=== PATIENT | male | born 1960 | race Caucasian/White ===

== ENCOUNTER 2016-05-16 09:37 | Emergency (ER) | payer MEDICAID ==
[~2016-05-16] VITALS: Ht 152.4 cm; Wt 59.9 kg
[~2016-05-16 09:37] MED LIST: CYCL5TAB PO; SIMV-8
[2016-05-16 10:54] LABS: Albumin 4.2 g/dL (3.4-5.0); BUN/Creatinine Ratio 16.7; Bilirubin, Total 0.6 mg/dL (0.2-1.0); Calcium 8.9 mg/dL (8.5-10.1); Potassium 4.1 mmol/L (3.5-5.1); Total Protein 7.7 g/dL (6.4-8.2)
[2016-05-16 11:04] LABS: Basophils # (auto) 0 uL; Basophils % (auto) 0.4 % (0.0-2.0); Eosinophils # (auto) 0 uL; Eosinophils % (auto) 0.9 % (0.0-7.0); Hematocrit 45.1 % (41.0-53.0); Hemoglobin 15.3 g/dL (13.5-17.5); Lymphocytes # (auto) 1.6 uL; Lymphocytes % (auto) 30.8 % (10.0-50.0); Mean Corpuscular Hemoglobin 29.4 pg (28.0-32.0); Mean Corpuscular Hgb Conc. 33.9 g/dL (32.0-36.0); Mean Corpuscular Volume 86.6 fL (80.0-100.0); Mean Platelet Volume 8.6 fL (7.4-10.4); Monocytes # (auto) 0.4 uL; Monocytes % (auto) 7.2 % (0.0-12.0); Neutrophils # (auto) 3.1 uL; Neutrophils % (auto) 60.7 % (37.0-80.0); Platelet Count (auto) 207 10^3/uL (140-450); Red Cell Distribution Width 12.8 % (11.6-16.0)
[2016-05-16 13:08] VITALS: BP 139/80
== END 2016-05-16 15:19 | disposition home or self-care (01) ==
LOC: ER 09:47
DX: G89.29 Other chronic pain (principal); M54.5 Low back pain
CPT/HCPCS: 36415; 73502; 80053; 85025; 93005; 93926

== ENCOUNTER 2021-06-24 03:53 | Emergency (ER) | payer MEDICAID, OTHER ==
[~2021-06-24] VITALS: Ht 175.3 cm; Wt 81.6 kg
[~2021-06-24 03:53] MED LIST changes: +CYCL-837 PO; -CYCL5TAB PO
[2021-06-24 05:01] LABS: Albumin 3.6 g/dL (3.4-5.0); Calcium 8.5 mg/dL (8.5-10.1); Potassium 4.3 mmol/L (3.5-5.1)
[2021-06-24 05:02] LABS: BUN/Creatinine Ratio 9.8
[2021-06-24 05:05] LABS: Bilirubin, Total 0.8 mg/dL (0.2-1.0); Total Protein 7.1 g/dL (6.4-8.2)
[2021-06-24] MEDS ORDERED: AMOXICILLIN/CLAVUL 875 MG TAB PO ONE (05:45)
[2021-06-24] MEDS ORDERED: DexAMETHasone SOD PHOS 10MG/1ML VIAL INJ IM ONE (05:45)
[2021-06-24 06:03] LABS: Basophils # (auto) 0 10 ^3/uL (0-0.2); Basophils % (auto) 0.3 % (0.0-2.0); Eosinophils # (auto) 0 10 ^3/uL (0-0.8); Hematocrit 39.9 % (41.0-53.0); Hemoglobin 14.3 g/dL (13.5-17.5); Lymphocytes # (auto) 0.8 10 ^3/uL (0.4-5.4); Lymphocytes % (auto) 13.2 % (10.0-50.0); Mean Corpuscular Hemoglobin 29.8 pg (28.0-32.0); Mean Corpuscular Hgb Conc. 35.8 g/dL (32.0-36.0); Mean Corpuscular Volume 83.3 fL (80.0-100.0); Monocytes # (auto) 0.7 10 ^3/uL (0-1.3); Monocytes % (auto) 10.6 % (0.0-12.0); Neutrophils # (auto) 4.8 10 ^3/uL (1.6-8.6); Neutrophils % (auto) 75.9 % (37.0-80.0); Red Blood Cells 4.79 10^6/uL (4.5-5.90); Red Cell Distribution Width 13.5 % (11.8-14.3); White Blood Cell 6.4 10^3/uL (4.4-10.8)
[2021-06-24 06:23] VITALS: BP 142/82
== END 2021-06-24 06:40 | disposition home or self-care (01) ==
LOC: EDBD 03:53 → ER 03:53
DX: J02.9 Acute pharyngitis, unspecified (principal); R51.9 Headache, unspecified; Z79.899 Other long term (current) drug therapy
CPT/HCPCS: 36415; 70450; 71045; 80053; 84484; 85025; 93005; 96372; 99285; J1100

== ENCOUNTER 2023-06-15 11:53 | Emergency (ER) | payer MEDICAID ==
[~2023-06-15] VITALS: Ht 175.3 cm; Wt 65.7 kg
[~2023-06-15 11:53] MED LIST changes: -SIMV-8; +SIMV20TA20
[2023-06-15] MEDS: KETOROLAC TROMETH 60MG/2ML VIAL IM ONE (13:01)
[2023-06-15] MEDS ORDERED: IBUP-1456 PO (13:21)
[2023-06-15] MEDS ORDERED: BACL10TA PO (13:21)
[2023-06-15 13:27] VITALS: BP 118/72; PULSE 65; RESP 19; TEMP 97.6; O2SAT 97
== END 2023-06-15 13:29 | disposition home or self-care (01) ==
LOC: ER 11:53
DX: S39.012A Strain of muscle, fascia and tendon of lower back, initial encounter (principal); G89.29 Other chronic pain; Z79.1 Long term (current) use of non-steroidal anti-inflammatories (NSAID); Z79.899 Other long term (current) drug therapy; X50.1XXA Overexertion from prolonged static or awkward postures, initial encounter; Y93.89 Activity, other specified; Y92.89 Other specified places as the place of occurrence of the external cause; Y99.8 Other external cause status
CPT/HCPCS: 72100; 96372; 99283; J1885

== ENCOUNTER 2023-06-18 16:35 | Emergency (ER) | payer MEDICAID ==
[~2023-06-18] VITALS: Ht 172.7 cm; Wt 65.5 kg
[~2023-06-18 16:35] MED LIST changes: +BACL10TA PO; +IBUP-1456 PO
[2023-06-18 17:38] VITALS: BP 128/70; PULSE 66
[2023-06-18] MEDS ORDERED: ACE3T PO (23:32)
[2023-06-18] MEDS: KETOROLAC TROMETH 60MG/2ML VIAL IM ONE (23:37)
[2023-06-18 23:39] VITALS: RESP 18; O2SAT 98
== END 2023-06-18 23:48 | disposition home or self-care (01) ==
LOC: ER 16:35
DX: S39.012A Strain of muscle, fascia and tendon of lower back, initial encounter (principal); Z79.899 Other long term (current) drug therapy; X58.XXXA Exposure to other specified factors, initial encounter; Y93.89 Activity, other specified; Y92.89 Other specified places as the place of occurrence of the external cause; Y99.8 Other external cause status
CPT/HCPCS: 96372; 99283; J1885